=== PATIENT | female | born 1940 | race African-American/Black ===

== ENCOUNTER 2017-04-16 17:45 | Emergency (ER) | payer MEDICARE, OTHER ==
--- NOTE | ~2017-04-16 | EKG ---
PATIENT: RUMA GROSS UNIT #: [id number] Ventricular Rate: 61 BPM Atrial Rate: 61 BPM P-R Interval: 114 ms QRS Duration: 86 ms Q-T Interval: 450 ms QTC Calculation(Bezet): 453 ms P Aspen: 88 degrees Calculated R Aspen: -38 degrees Calculated T Aspen: 92 degrees Diagnosis Line: Suspect unspecified pacemaker failure Diagnosis Line: Atrial-paced rhythm Diagnosis Line: Left axis deviation Diagnosis Line: Low voltage QRS Diagnosis Line: Cannot rule out Anterior infarct (cited on or Diagnosis Line: before 16-APR-2017) Diagnosis Line: Abnormal ECG Diagnosis Line: When compared with ECG of 25-AUG-2015 18:25, Diagnosis Line: Electronic atrial pacemaker has replaced Sinus Diagnosis Line: rhythm Diagnosis Line: Nonspecific T wave abnormality now evident in Diagnosis Line: Lateral leads Diagnosis Line: Confirmed by APRLI BELL MD ([id number]) on 04/19/2017 Diagnosis Line: 8:07:46 AM INTERPRETING MD: RAY PEACOCK
--- NOTE | ~2017-04-16 | CR72 ---
[facility] A Service of [facility] & [facility] RADIOLOGY TEXT RESULTS PATIENT: RUMA GROSS LOCATION: [facility] : 36 UNIT #: [id number] AGE: [address]: Sera Drummond MD SEX: F ORDER DR: [id number] [facility] [address] [place], [place] [address] [id number] MR#: [id number] Acc #: [id number] NAME: RUMA GROSS : 1940 SEX: F STUDY DATE/TIME: 04/16/2017 19:44 UNIT: [facility] ROOM: STUDY DESCRIPTION: CR Chest Single View Portable Attending Physician: Sera Drummond M.D. Ordering Physician: Sera Drummond M.D. Primary Care Physician: Nahid Bonilla M.D. MEDICAL IMAGING REPORT This report is preliminary unless electronic signature is present EXAM Portable chest HISTORY Chest pain and shortness of air today. FINDINGS Dense consolidation or atelectasis in the retrocardiac left lower lobe and small bilateral pleural effusions. Additional minimal atelectasis in the right base. Mild cardiac enlargement. Pulmonary vascularity is normal. Left subclavian pacer leads extend into the right atrium and right ventricle. IMPRESSION 1. Dense consolidation or atelectasis in the left base with small bilateral pleural effusions. Additional mild atelectasis in the right base. 2. Mild cardiac enlargement. Dictated by... Broderick Gomez M.D. THIS IS AN ELECTRONICALLY VERIFIED REPORT Broderick Gomez M.D. at 04/17/2017 4:31 PM DFL/psc TD: 04/16/2017 20:20 JOB #: [id number] MEDICAL IMAGING REPORT Page 1 of 1 COPY
[~2017-04-16 17:45] MED LIST: ALBUTEROL17 GM INH; ALEVE PO; AMIODARONE; AMIODARONE PO; ANTIVERT PO; BLOOD PRESSURE; COLACE; DOC-Q-LACE100 MG PO; FERROUS GLUCON324 MG PO; FUROSEMIDE40 MG PO; HYDROCODON-ACE1 EAC7 PO; IRON SUPPLEMENT1 TAB; LASIX20 MG PO; LEVOTHYROXINE25 MCG; LEXAPRO; LIDODERM30 EA; LIPITOR40 MG PO; MACROBID100 M1 DOB; MEDI-MECLIZINE25 M1 PO; METOPROLOL TAR25 MG; METOPROLOL TAR25 MG PO; ONDANSETRON ODT4 MG DOB; PERCOCET7.5 PO; PREDNISONE PO; PROAIR HFA8.5 GM INH; PROTONIX; REGLAN; THEO-DUR300 MG PO; THEOPHYLLIN; XARELTO15 MG; XARELTO15 MG PO
[2017-04-16 18:45] LABS: BASOPHIL% 0.5 % (0-2.5); EOSINOPHIL% 0.7 % (0.0-7.0); HEMATOCRIT 36.8 % (35.0-45.0); HEMOGLOBIN 11.8 gm/dL (12.0-16.0); LYMPHOCYTE# 1.9 X10e3 (1.0-3.5); LYMPHOCYTE% 27.5 % (17.0-45.0); MEAN CELL VOLUME 97.4 FL (83-96); MEAN CORPUSCULAR HEMOGLOBIN 31.3 PG (28-34); MEAN CORPUSCULAR HGB CONC 32.1 g/dL (30-36); MEAN PLATELET VOLUME 11.2 FL (6.5-11.5); MONOCYTE# 0.6 X10e3 (0-1.0); NEUTROPHIL# 4.4 X10e3 (1.5-7.1); NEUTROPHIL% 63.3 % (40-75); PLATELET COUNT 138 X10e3 (140-420); RED BLOOD COUNT 3.78 X10e (3.90-5.30); RED CELL DISTRIBUTION WIDTH 18.4 % (11.0-15.5)
[2017-04-16 18:51] LABS: DIFF IND NO
[2017-04-16 18:54] LABS: POC - CKMB <1.0 ng/mL (0.0-7.9); POC - TROPONIN <0.05 ng/mL (<=0.05)
[2017-04-16 19:09] LABS: ALBUMIN SERUM 3.5 g/dL (3.5-5.0); ALKALINE PHOSPHATASE 56 U/L (32-92); ALT (SGPT) 17 U/L (10-40); AST (SGOT) 14 U/L (10-42); BILIRUBIN, DIRECT 0.1 mg/dL (0.0-0.2); BILIRUBIN,INDIRECT 0.2 mg/dL (0.0-0.9); BILIRUBIN,TOTAL 0.3 mg/dL (0.2-2.0); BLOOD UREA NITROGEN 16 mg/dL (9-23); CALCIUM SERUM 8.9 mg/dL (8.4-10.2); CARBON DIOXIDE 25 mmol/L (22-31); CHLORIDE 107 mmol/L (100-111); GLOM FILT RATE Estimated 62.5 mL/min (>60); GLUCOSE FASTING 93 mg/dL (70-110); POTASSIUM 4.1 mmol/L (3.5-5.1); SODIUM 138 mmol/L (135-145)
[2017-04-16 19:11] LABS: LIPASE <10 U/L (22-51)
[2017-04-16 19:12] LABS: INR 1.2; PARTIAL THROMBOPLASTIN TIME 27.4 SECONDS (23.5-31.3); PROTHROMBIN TIME (PATIENT) 12.9 SECONDS (10.0-11.7)
[2017-04-16 21:12] LABS: POC - CKMB <1.0 ng/mL (0.0-7.9); POC - TROPONIN <0.05 ng/mL (<=0.05)
== END 2017-04-17 01:57 | disposition home or self-care (01) ==
LOC: CED 17:45
PROVIDERS: Emergency Medicine
DX: J18.9 Pneumonia, unspecified organism (principal); I11.0 Hypertensive heart disease with heart failure; I50.9 Heart failure, unspecified; J45.909 Unspecified asthma, uncomplicated; Z86.718 Personal history of other venous thrombosis and embolism; Z86.73 Personal history of transient ischemic attack (TIA), and cerebral infarction without residual deficits; Z98.890 Other specified postprocedural states; E78.5 Hyperlipidemia, unspecified; Z91.013 Allergy to seafood; Z91.040 Latex allergy status
CPT/HCPCS: 36415; 71010; 80048; 80076; 82553; 83690; 83880; 84484; 85025; 85610; 85730; 93005; 96374; 99285; J0696

== ENCOUNTER 2017-05-17 12:38 | Emergency (ER) | payer MEDICARE, OTHER | END 2017-05-17 15:00 | disposition EXP | LOC: CED 12:38 | DX: I46.9 Cardiac arrest, cause unspecified (principal) | CPT/HCPCS: 99285 ==